=== PATIENT | male | born 1950 | race Hispanic/Latino ===

== ENCOUNTER 2018-11-16 11:46 | Observation (INO) | payer MEDICARE, MEDICAID ==
[2018-11-16] MEDS ORDERED: Albuterol-Ipratrop 3 mg / 0.5 (3 ml) UD IH STA (12:19)
--- NOTE | 2018-11-16 12:21 | ED PDOC ---
Arrival/HPI - General Chief Complaint: Chest Pain Time Seen by Provider: 11/16/18 11:56 Historian: Patient - History of Present Illness Narrative History of Present Illness (Text): 68 yr old male w/ hx of HLD p/w chest pain. Pt notes chest pain started this morning at 0800, left sided at first, then radiating to his right side, stabbing, first time occurence. He notes non productive cough as well. No abdominal pain or constipation. No fever, chills or night sweats. No dark or bloody stool. He notes nausea and one episode of vomiting. No trauma or fall. He also notes LLE pain, with some mild swelling. No other complaints. Past Medical History - Cardiac Hx Cardiac Disorders: Yes - Psychiatric Hx Substance Use: No Family/Social History Family/Social History: Unknown Family HX Smoking Status: Never Smoked Hx Alcohol Use: No Hx Substance Use: No Allergies/Home Meds Allergies/Adverse Reactions: Allergies No Known Allergies Allergy (Verified 11/16/18 11:59) Home Medications: Home Meds Medication Instructions Recorded Confirmed Unobtainable 11/16/18 11/16/18 Review of Systems - Review of Systems Constitutional: Normal. absent: Fatigue, Weight Change, Fevers, Night Sweats Eyes: Normal. absent: Vision Changes, Photophobia, Eye Pain ENT: Normal. absent: Hearing Changes, Tinnitus, TMJ Pain, Sore Throat Respiratory: SOB, Cough. absent: Sputum Cardiovascular: Chest Pain, Palpitations. absent: Edema, PRIEST, Orthopnea, Syncope Gastrointestinal: Nausea, Vomiting. absent: Abdominal Pain, Stool Changes, Constipation, Diarrhea, Appetite Changes, Hematochezia, Hematemesis Genitourinary Male: Normal. absent: Dysuria, Frequency, Hematuria Musculoskeletal: Normal. absent: Arthralgias, Back Pain, Neck Pain Skin: Normal. absent: Rash, Pruritis, Skin Lesions Neurological: Normal. absent: Headache, Dizziness, Focal Weakness Endocrine: Normal. absent: Diaphoresis, Polyuria Physical Exam Vital Signs Reviewed: Yes Vital Signs Temp Pulse Resp BP Pulse Ox 11/16/18 11:56 98.4 F 89 18 135/78 100 Temperature: Afebrile Blood Pressure: Normal Pulse: Regular Respiratory Rate: Normal Appearance: Positive for: Well-Appearing Pain Distress: Mild Mental Status: Positive for: Alert and Oriented X 3. No: Confused, Agitated - Systems Exam Head: Present: Atraumatic, Normocephalic Pupils: Present: PERRL Extroacular Muscles: Present: EOMI Conjunctiva: Present: Normal Ears: Present: Normal Mouth: Present: Moist Mucous Membranes Pharnyx: Present: Normal. No: ERYTHEMA, EXUDATE, TONSILS ENLARGED Nose (External): Present: Atraumatic. No: Abrasion Nose (Internal): Present: Normal Inspection Neck: Present: Normal Range of Motion. No: Meningeal Signs, MIDLINE TENDERNESS Respiratory/Chest: Present: Clear to Auscultation, Good Air Exchange. No: Respiratory Distress Cardiovascular: Present: Regular Rate and Rhythm, Normal S1, S2, Peripheal Pulses Present. No: Irregular Rhythm, Tachycardic, Bradycardic Abdomen: Present: Normal Bowel Sounds. No: Tenderness, Distention, Peritoneal Signs Back: Present: Normal Inspection. No: CVA Tenderness, Midline Tenderness Upper Extremity: Present: Normal Inspection, Normal ROM, NORMAL PULSES, Neurovascularly Intact. No: Cyanosis, Edema, Tenderness, Swelling, Erythema Lower Extremity: Present: Normal Inspection, NORMAL PULSES, Normal ROM, Other (negative thompsons). No: Edema, CALF TENDERNESS, Isabella's Sign, Tenderness, Swelling Neurological: Present: GCS=15, CN II-XII Intact, Speech Normal Skin: Present: Warm, Dry. No: Rashes Psychiatric: Present: Alert, Oriented x 3, Normal Insight Medical Decision Making ED Course and Treatment: 68 yr old male w/ hx of HLD p/w chest pain, shortness of breath, n/v. Moderate heart score given RF, AGE and story. will likely require reqeat trops. Also noted LLE swelling, but none visualized or noted on exam. Added venous duplex LLE. EK, NSR. No stemi Heat score Age: 2 RF: 1 Story: 1 EK trop: pending 11/16/18 14:12 trop pending xray unremarkable labs otherwise largely unremarkable pending US pt in [facility] 11/16/18 14:45 Troponin, bnp unremarkable ASA ordered Paged Hospitalist for admission for serial trops 11/16/18 14:49 appreciate consult w/ Dr. Angel: to obs to her service pt in [facility], agreeable to admission pain - RAD Interpretation Radiology Orders: 11/16/18 12:19 CHEST TWO VIEWS (PA/LAT) [RAD] Stat DUPLEX LOWER EXT ART LT LMTD [US] Stat - Medication Orders Current Medication Orders: Albuterol/Ipratropium (Duoneb 3 Mg/0.5 Mg (3 Ml) Ud) 3 ml IH STAT STA Stop: 11/16/18 12:20 Disposition/Present on Arrival - Present on Arrival Any Indicators Present on Arrival: No History of DVT/PE: No History of Uncontrolled Diabetes: No Urinary Catheter: No History of Decub. Ulcer: No History Surgical Site Infection Following: None - Disposition Have Diagnosis and Disposition been Completed?: Yes Diagnosis: Chest pain Disposition Time: 14:49 Patient Problems: Current Active Problems Problem Status Onset Chest pain Acute Condition: STABLE Discharge Instructions (ExitCare): Chest Pain (ED) Referrals: Marija Ovalle MD [Primary Care Provider] - Follow up with primary Forms: [email or web address] (Kiswahili)
[2018-11-16 12:31] LABS: BASO # 0.02 K/mm3 (0.0-2.0); BASO % 0.3 % (0.0-3.0); EOS # 0.1 (0.0-0.7); EOS % 1.7 % (1.5-5.0); HEMOGLOBIN 14.3 g/dL (14.0-18.0); LYMPH % 39.6 % (22.0-35.0); MEAN CELL VOLUME 94.1 fl (80.0-105.0); MEAN CORPUSCULAR HEMOGLOBIN 32.3 pg (25.0-35.0); MEAN CORPUSCULAR HGB CONC 34.3 g/dl (31.0-37.0); MEAN PLATELET VOLUME 10.5 fl (7.0-11.0); MONO # 0.6 (0.1-0.6); MONO % 8.1 % (1.0-6.0); RBC 4.43 10^6/uL (3.5-6.1); RED CELL DISTRIBUTION WIDTH 12.7 % (11.5-14.5); WHITE BLOOD COUNT 7.5 10^3/uL (4.5-11.0)
[2018-11-16 13:38] LABS: ALB/GLOB RATIO 1.2 (1.1-1.8); ALBUMIN 4.3 g/dL (3.0-4.8); BLOOD UREA NITROGEN 18 mg/dL (7-21); CALCIUM 9.6 mg/dL (8.4-10.5); GFR NON-AFRICAN AMERICAN > 60
[2018-11-16 13:44] LABS: ALT/SGPT 24 U/L (7-56); AST/SGOT 37 U/L (17-59)
--- NOTE | 2018-11-16 14:12 | RAD ---
Date of service: 11/16/2018 HISTORY: cp COMPARISON: No prior. TECHNIQUE: Chest PA and lateral views FINDINGS: LUNGS: No active pulmonary disease. PLEURA: No significant pleural effusion identified. No pneumothorax apparent. CARDIOVASCULAR: No aortic atherosclerotic calcification present. Normal cardiac size. No pulmonary vascular congestion. OSSEOUS STRUCTURES: No significant abnormalities. VISUALIZED UPPER ABDOMEN: Normal. OTHER FINDINGS: None. IMPRESSION: No active disease.
[2018-11-16 14:30] LABS: B-TYPE NATRIURETIC PEPTIDE 58.3 pg/mL (0-450); TROPONIN I 0.01 ng/mL
--- NOTE | 2018-11-16 15:51 | CP.PCM.HP ---
<Ana Zeng - Last Filed: 11/16/18 16:01> History of Present Illness - History of Present Illness History of Present Illness: Ana Zneg, PGY1 Hospital H&P CC: Chest pain This is a 68 year old male with PMH of HLD presenting to the ED for chest pain that began this morning at 7am while driving. Patient states chest pain started suddenly, characterized as stabbing, located along the left side of the chest, constant, rated 8/10, associated with nausea, one episode of NBNB vomitting, dizziness, right hand numbness and left leg numbness, and denies any alleviating factors and endorses palpation makes the pain worse. Pain spontaneously resolved and patient denies any history of similar symptoms. He sees Dr. Ovalle regularly and denies any history of cardiac workup including stress test and cardiac cath. He denies headaches, fevers, chills, abdominal pain, diarrhea, constipation, diarrhea, urinary complaints, swelling, recent travel, recent sickness, sick contacts at home, heavy lifting, trauma and recent diet/lifestyle change. 12 point ROS noted here, otherwise unremarkable. PMD: Dr. Ovalle [facility]acy[facility] [address] [facility] SH: denies smoking, drinking and drugs Sx: glaucoma surgery B/L two years ago Meds: unknown cholesterol medication and weekly vitamin D All: NKDA FH: denies Present on Admission - Present on Admission Any Indicators Present on Admission: No Past Patient History - Past Social History Smoking Status: Never Smoked - CARDIAC Hx Cardiac Disorders: Yes - PSYCHIATRIC Hx Substance Use: No - SURGICAL HISTORY Hx Surgeries: No Meds Home Medications: Home Medication List Medication Instructions Recorded Confirmed Type Pantoprazole [Protonix] 40 mg PO DAILY #30 ect 11/17/18 Rx Allergies/Adverse Reactions: Allergies Allergy/AdvReac Type Severity Reaction Status Date / Time No Known Allergies Allergy Verified 11/16/18 17:12 Physical Exam - Constitutional Appears: No Acute Distress - Head Exam Head Exam: ATRAUMATIC, NORMAL INSPECTION - Eye Exam Eye Exam: EOMI Pupil Exam: PERRL - ENT Exam ENT Exam: Mucous Membranes Moist - Neck Exam Neck exam: Positive for: Normal Inspection - Respiratory Exam Respiratory Exam: Clear to Auscultation Bilateral, NORMAL BREATHING PATTERN. absent: Accessory Muscle Use, Wheezes, Respiratory Distress - Cardiovascular Exam Cardiovascular Exam: REGULAR RHYTHM, +S1, +S2. absent: Tachycardia Additional comments: left sided chest wall reproducible tenderness with palpation - GI/Abdominal Exam GI & Abdominal Exam: Normal Bowel Sounds, Soft. absent: Firm, Guarding, T enderness - Extremities Exam Extremities exam: Positive for: normal inspection, pedal pulses present. Negative for: calf tenderness, pedal edema, tenderness - Back Exam Back exam: NORMAL INSPECTION Additional comments: Cervical and thoracic spinal tenderness appreciated. No erythema/skin changes noted - Neurological Exam Neurological exam: Alert, CN II-XII Intact, Oriented x3 - Skin Skin Exam: Normal Color, Warm Results - Vital Signs Recent Vital Signs: Last Vital Signs Temp 98.4 F 11/16/18 11:56 Pulse 59 L 11/16/18 15:41 Resp 18 11/16/18 15:41 BP 130/80 11/16/18 15:41 Pulse Ox 96 11/16/18 15:41 - Labs Result Diagrams: 11/16/18 12:00 11/16/18 12:00 Labs: Laboratory Results - last 24 hr 11/16/18 11/16/18 12:00 12:00 WBC 7.5 RBC 4.43 Hgb 14.3 Hct 41.7 L MCV 94.1 MCH 32.3 MCHC 34.3 RDW 12.7 Plt Count 203 MPV 10.5 Neut % (Auto) 50.3 Lymph % (Auto) 39.6 H [place] % (Auto) 8.1 H Eos % (Auto) 1.7 Baso % (Auto) 0.3 Lymph # (Auto) 3.0 [place] # (Auto) 0.6 Eos # (Auto) 0.1 Baso # (Auto) 0.02 Absolute Neuts (auto) 3.77 Sodium 138 Potassium 3.8 Chloride 102 Carbon Dioxide 28 Anion Gap 12 BUN 18 Creatinine 0.8 Est GFR ( Amer) > 60 Est GFR (Non-Af Amer) > 60 Random Glucose 97 Calcium 9.6 Total Bilirubin 0.4 AST 37 ALT 24 Alkaline Phosphatase 69 Troponin I 0.01 NT-Pro-B Natriuret Pep 58.3 Total Protein 8.0 Albumin 4.3 Globulin 3.7 Albumin/Globulin Ratio 1.2 Assessment & Plan - Assessment and Plan (Free Text) Assessment: This is a 68 year old male with PMH of HLD presenting to the ED for chest pain that began this morning at 7am while driving. Plan: Chest pain -initial troponin WNL, initial EKG NSR at 81bpm with no ST changes -serial troponins pending, EKG AM -TSH pending -A1c pending -echo pending -cardiology on consult Dizziness -left leg/right arm dizziness -CT head pending -aspirin Hx of HLD -lipid panel pending PPX -lovenox 40mg sc -HHD, NPO after midnight Patient seen and case discussed with attending, Dr. Angel <Chilo Angel - Last Filed: 11/17/18 15:36> Results - Vital Signs Recent Vital Signs: Last Vital Signs Temp 97.8 F 11/17/18 06:00 Pulse 55 L 11/17/18 10:00 Resp 20 11/17/18 06:00 BP 110/68 11/17/18 06:00 Pulse Ox 98 11/17/18 06:00 - Labs Result Diagrams: 11/17/18 06:05 11/17/18 06:05 Labs: Laboratory Results - last 24 hr 11/16/18 11/17/18 11/17/18 18:30 00:25 06:05 WBC 7.8 RBC 4.62 Hgb 14.7 Hct 43.6 MCV 94.4 MCH 31.8 MCHC 33.7 RDW 12.8 Plt Count 194 MPV 10.6 Neut % (Auto) 64.1 Lymph % (Auto) 23.1 [place] % (Auto) 10.6 H Eos % (Auto) 1.9 Baso % (Auto) 0.3 Lymph # (Auto) 1.8 [place] # (Auto) 0.8 H Eos # (Auto) 0.2 Baso # (Auto) 0.02 Absolute Neuts (auto) 5.02 Sodium Potassium Chloride Carbon Dioxide Anion Gap BUN Creatinine Est GFR ( Amer) Est GFR (Non-Af Amer) Random Glucose Hemoglobin A1c Calcium Phosphorus Magnesium Total Bilirubin AST ALT Alkaline Phosphatase Troponin I < 0.01 < 0.01 Total Protein Albumin Globulin Albumin/Globulin Ratio Triglycerides Cholesterol LDL Cholesterol Direct HDL Cholesterol TSH 3rd Generation 11/17/18 11/17/18 11/17/18 06:05 06:05 08:15 WBC RBC Hgb Hct MCV MCH MCHC RDW Plt Count MPV Neut % (Auto) Lymph % (Auto) [place] % (Auto) Eos % (Auto) Baso % (Auto) Lymph # (Auto) [place] # (Auto) Eos # (Auto) Baso # (Auto) Absolute Neuts (auto) Sodium 138 Potassium 4.6 Chloride 101 Carbon Dioxide 30 Anion Gap 11 BUN 18 Creatinine 1.0 Est GFR ( Amer) > 60 Est GFR (Non-Af Amer) > 60 Random Glucose 95 Hemoglobin A1c 6.0 Calcium 9.1 Phosphorus 3.4 Magnesium 2.0 Total Bilirubin 0.6 AST 30 ALT 21 Alkaline Phosphatase 68 Troponin I Total Protein 7.6 Albumin 3.8 Globulin 3.7 Albumin/Globulin Ratio 1.0 L Triglycerides 109 Cholesterol 223 H LDL Cholesterol Direct 107 HDL Cholesterol 58 TSH 3rd Generation 0.37 L Attending/Attestation - Attestation I have personally seen and examined this patient.: Yes I have fully participated in the care of the patient.: Yes I have reviewed all pertinent clinical information: Yes Notes (Text): 11/17/18 15:19 Attending note; Patient seen and examined with resident in ER. Patient is complaining of midsternal chest pain. Patient has chest pain on and off. Denies any fevers, chills. Denies any cough or sputum production. Patient is a 68 year old male with PMH of HLD presenting to the ED for chest pain that began this morning 1. Chest pain; EKG showed normal sinus rhythm left atrial enlargement. troponin x1 is negative. Troponin x3 ordered. Cardiology evaluation requested. Echocardiogram ordered. 2. HyperCholesterolemia; dietary education given. Upon discharge the patient will follow up with PMD .
--- NOTE | 2018-11-16 16:59 | CT ---
Date of service: 11/16/2018 PROCEDURE: CT HEAD WITHOUT CONTRAST. HISTORY: dizziness COMPARISON: None available. TECHNIQUE: Axial computed tomography images were obtained through the head/brain without intravenous contrast. Radiation dose: Total exam DLP = 811.97 mGy-cm. This CT exam was performed using one or more of the following dose reduction techniques: Automated exposure control, adjustment of the mA and/or kV according to patient size, and/or use of iterative reconstruction technique. FINDINGS: HEMORRHAGE: No intracranial hemorrhage. BRAIN: No mass effect or edema. No atrophy or chronic microvascular ischemic changes. VENTRICLES: Unremarkable. No hydrocephalus. CALVARIUM: Unremarkable. PARANASAL SINUSES: Unremarkable as visualized. No significant inflammatory changes. MASTOID AIR CELLS: Unremarkable as visualized. No inflammatory changes. OTHER FINDINGS: None. IMPRESSION: No intracranial mass, hemorrhage or evidence of acute infarct. Unremarkable examination
--- NOTE | 2018-11-16 17:41 | CARD ---
APPROVED REPORT Date of service: 11/16/2018 EKG Measurement Heart [id number] <Conclusion> Normal sinus rhythm Possible Left atrial enlargement Borderline ECG
--- NOTE | 2018-11-16 18:07 | US ---
PROCEDURE: Left lower extremity venous US HISTORY: Leg pain and swelling. Evaluate for DVT. PHYSICIAN(S): Markell Hatfield MD. TECHNIQUE: Duplex sonography and color-flow Doppler with graded compression were used to evaluate the deep venous system of the left lower extremity. FINDINGS: The visualized deep venous system of the left lower extremity is sonographically normal and compressible. Normal wave forms and augmentation are seen. There is no sonographic evidence for deep venous thrombosis in the visualized segments of the left lower extremity. IMPRESSION: 1. No sonographic evidence for deep venous thrombosis in the visualized segments of the left lower extremity.
[2018-11-16 18:58] VITALS: BMI 22.8
[2018-11-16] MEDS ORDERED: Influenza Vaccine 60 mcg/0.5 mL SYR (4YR UP) IM ONE (18:58)
[2018-11-16] MEDS ORDERED: Pneumococcal 23-Valent Vaccine IM ONE (18:58)
[2018-11-17 01:23] VITALS: RESP 20
[2018-11-17 06:31] VITALS: BP 110/68; TEMP 97.8; O2SAT 98
[2018-11-17 06:41] LABS: BASO # 0.02 K/mm3 (0.0-2.0); BASO % 0.3 % (0.0-3.0); EOS # 0.2 (0.0-0.7); EOS % 1.9 % (1.5-5.0); HEMOGLOBIN 14.7 g/dL (14.0-18.0); LYMPH # 1.8 (1.2-3.4); LYMPH % 23.1 % (22.0-35.0); MEAN CELL VOLUME 94.4 fl (80.0-105.0); MEAN CORPUSCULAR HEMOGLOBIN 31.8 pg (25.0-35.0); MEAN CORPUSCULAR HGB CONC 33.7 g/dl (31.0-37.0); MEAN PLATELET VOLUME 10.6 fl (7.0-11.0); MONO # 0.8 (0.1-0.6); MONO % 10.6 % (1.0-6.0); RBC 4.62 10^6/uL (3.5-6.1); RED CELL DISTRIBUTION WIDTH 12.8 % (11.5-14.5); WHITE BLOOD COUNT 7.8 10^3/uL (4.5-11.0)
[2018-11-17 07:01] LABS: LDL CHOLESTEROL 107 mg/dL (0-129)
[2018-11-17 07:24] LABS: ALBUMIN 3.8 g/dL (3.0-4.8); ALT/SGPT 21 U/L (7-56); AST/SGOT 30 U/L (17-59); BLOOD UREA NITROGEN 18 mg/dL (7-21); CALCIUM 9.1 mg/dL (8.4-10.5); GFR NON-AFRICAN AMERICAN > 60; HDL CHOLESTEROL 58 mg/dL (29-60)
--- NOTE | 2018-11-17 08:00 | CP.PCM.CON ---
History of Present Illness - History of Present Illness History of Present Illness: Awake, alert, no distress, denies chest pain Reason for consultation:Cardiac evaluation of chest pain Brief history of present illness:A 68 year old male who came in to the ER due to epigastric pain radiating to left side of chest associated with nausea and vomiting. He claimed to have heart burn. History of hyperlipidemia, hypert ension, bilateral eye surgeries.He follows up with Dr. Ovalle. He denies smoking and drinking. He runs everyday.Denies any other medical problems. Seen and examined by me and Dr. 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) - RENAL Hx Chronic Kidney Disease: No - ENDOCRINE/METABOLIC Hx Endocrine Disorders: No - HEMATOLOGICAL/ONCOLOGICAL Hx Blood Disorders: No - INTEGUMENTARY Hx Dermatological Problems: Yes (ALBINO) - MUSCULOSKELETAL/RHEUMATOLOGICAL Hx Musculoskeletal Disorders: No Hx Falls: No - GASTROINTESTINAL Hx Gastrointestinal Disorders: No - GENITOURINARY/GYNECOLOGICAL Hx Genitourinary Disorders: No - PSYCHIATRIC Hx Psychophysiologic Disorder: No Hx Substance Use: No - SURGICAL HISTORY Hx Surgeries: Yes (BILATERAL EYE SURGERY) Meds Allergies/Adverse Reactions: Allergies Allergy/AdvReac Type Severity Reaction Status Date / Time No Known Allergies Allergy Verified 11/16/18 17:12 - Medications Medications: Current Medications Aspirin (Ecotrin) 81 mg PO 0800 [facility] Enoxaparin Sodium (Lovenox) 40 mg SC DAILY [facility]; Protocol Physical Exam - Constitutional Appears: Non-toxic, No Acute Distress - Head Exam Head Exam: NORMAL INSPECTION, NORMOCEPHALIC - Eye Exam Eye Exam: Normal appearance Pupil Exam: NORMAL ACCOMODATION - ENT Exam ENT Exam: Mucous Membranes Moist, Normal Exam - Respiratory Exam Respiratory Exam: Decreased Breath Sounds, Clear to Auscultation Bilateral, NORMAL BREATHING PATTERN - Cardiovascular Exam Cardiovascular Exam: Bradycardia, +S1, +S2 - GI/Abdominal Exam GI & Abdominal Exam: Normal Bowel Sounds, Soft Additional comments: burping - Extremities Exam Extremities exam: Positive for: full ROM - Neurological Exam Neurological exam: Alert, Oriented x3 - Psychiatric Exam Psychiatric exam: Normal Affect, Normal Mood - Skin Skin Exam: Dry, Normal Color, Warm Results - Vital Signs Recent Vital Signs: Last Vital Signs Temp 97.8 F 11/17/18 06:00 Pulse 82 11/17/18 06:00 Resp 20 11/17/18 06:00 BP 110/68 11/17/18 06:00 Pulse Ox 98 11/17/18 06:00 - Labs Result Diagrams: 11/17/18 06:05 11/17/18 06:05 Labs: Laboratory Results - last 24 hr 11/16/18 11/16/18 11/16/18 12:00 12:00 18:30 WBC 7.5 RBC 4.43 Hgb 14.3 Hct 41.7 L MCV 94.1 MCH 32.3 MCHC 34.3 RDW 12.7 Plt Count 203 MPV 10.5 Neut % (Auto) 50.3 Lymph % (Auto) 39.6 H [place] % (Auto) 8.1 H Eos % (Auto) 1.7 Baso % (Auto) 0.3 Lymph # (Auto) 3.0 [place] # (Auto) 0.6 Eos # (Auto) 0.1 Baso # (Auto) 0.02 Absolute Neuts (auto) 3.77 Sodium 138 Potassium 3.8 Chloride 102 Carbon Dioxide 28 Anion Gap 12 BUN 18 Creatinine 0.8 Est GFR ( Amer) > 60 Est GFR (Non-Af Amer) > 60 Random Glucose 97 Calcium 9.6 Phosphorus Magnesium Total Bilirubin 0.4 AST 37 ALT 24 Alkaline Phosphatase 69 Troponin I 0.01 < 0.01 NT-Pro-B Natriuret Pep 58.3 Total Protein 8.0 Albumin 4.3 Globulin 3.7 Albumin/Globulin Ratio 1.2 Triglycerides Cholesterol LDL Cholesterol Direct HDL Cholesterol 11/17/18 11/17/18 11/17/18 00:25 06:05 06:05 WBC 7.8 RBC 4.62 Hgb 14.7 Hct 43.6 MCV 94.4 MCH 31.8 MCHC 33.7 RDW 12.8 Plt Count 194 MPV 10.6 Neut % (Auto) 64.1 Lymph % (Auto) 23.1 [place] % (Auto) 10.6 H Eos % (Auto) 1.9 Baso % (Auto) 0.3 Lymph # (Auto) 1.8 [place] # (Auto) 0.8 H Eos # (Auto) 0.2 Baso # (Auto) 0.02 Absolute Neuts (auto) 5.02 Sodium 138 Potassium 4.6 Chloride 101 Carbon Dioxide 30 Anion Gap 11 BUN 18 Creatinine 1.0 Est GFR ( Amer) > 60 Est GFR (Non-Af Amer) > 60 Random Glucose 95 Calcium 9.1 Phosphorus 3.4 Magnesium 2.0 Total Bilirubin 0.6 AST 30 ALT 21 Alkaline Phosphatase 68 Troponin I < 0.01 NT-Pro-B Natriuret Pep Total Protein 7.6 Albumin 3.8 Globulin 3.7 Albumin/Globulin Ratio 1.0 L Triglycerides 109 Cholesterol 223 H LDL Cholesterol Direct 107 HDL Cholesterol 58 Assessment & Plan - Assessment and Plan (Free Text) Assessment: A 68 year old male who came in to the ER due to epigastric pain radiating to left side of chest associated with nausea and vomiting. He claimed to have heart burn. History of hyperlipidemia, hypertension, bilateral eye surgeries. He follows up with Dr. Ovalle. He denies smoking and drinking. He runs everyday. Denies any other medical problems.No previous cardiac work up at [facility]. EKG showed NSR, possible atrial enlargement. Chest X ray normal results. CT of head unremarkable. Negative for DVT per ultrasound. Tropronin normal x 3. Denies chest pain. Complaints of heartburn/epigastric pain. Ruled out myocardial ischemia. GI symptoms consider GI work up. Will order echo to evaluate LV function. Out patient stress test for risk stratification. Plan: Denies chest pain Heart rate controlled Blood pressure controlled Echo to evaluate LV function Continue current treatment Continue current medications TSH,HgbA1c Will follow up Further recommendations during hospital course Plan and treatment discussed with Dr. Pierce Thank you Dr. Angel for the opportunity of taking care of Mr. Tyler Can - Date & Time Date: 11/17/18 Time: 06:20
[2018-11-17] MEDS ORDERED: Enoxaparin 40 mg Syringe SC SCH (10:00)
[2018-11-17 11:34] VITALS: PULSE 55
--- NOTE | 2018-11-17 14:51 | CP.PCM.DIS ---
<Ana Zeng - Last Filed: 11/17/18 14:44> Provider - Provider Date of Admission: 11/16/18 14:48 Attending physician: Chilo Angel MD Primary care physician: Marija Ovalle MD Consults: 11/16/18 16:01 Cardiology Consult Stat Comment: Consulting Provider: Gianni Pierce Consulting Physician: Gianni Pierce Reason for Consult: chest pain 11/16/18 18:58 Inpatient [employer] Core Measures Referral Routine Comment: Physician Instructions: Reason For Exam: EVALUATION Transition In Care/Readmission Reduction Routine Comment: Physician Instructions: Reason For Exam: EVALUATION Time Spent in preparation of Discharge (in minutes): 35 Hospital Course - Lab Results Lab Results: Most Recent Lab Values WBC 7.8 10^3/uL (4.5-11.0) 11/17/18 06:05 RBC 4.62 10^6/uL (3.5-6.1) 11/17/18 06:05 Hgb 14.7 g/dL (14.0-18.0) 11/17/18 06:05 Hct 43.6 % (42.0-52.0) 11/17/18 06:05 MCV 94.4 fl (80.0-105.0) 11/17/18 06:05 MCH 31.8 pg (25.0-35.0) 11/17/18 06:05 MCHC 33.7 g/dl (31.0-37.0) 11/17/18 06:05 RDW 12.8 % (11.5-14.5) 11/17/18 06:05 Plt Count 194 10^3/uL (120.0-450.0) 11/17/18 06:05 MPV 10.6 fl (7.0-11.0) 11/17/18 06:05 Neut % (Auto) 64.1 % (50.0-68.0) 11/17/18 06:05 Lymph % (Auto) 23.1 % (22.0-35.0) 11/17/18 06:05 Freestone % (Auto) 10.6 % (1.0-6.0) H 11/17/18 06:05 Eos % (Auto) 1.9 % (1.5-5.0) 11/17/18 06:05 Baso % (Auto) 0.3 % (0.0-3.0) 11/17/18 06:05 Lymph # (Auto) 1.8 (1.2-3.4) 11/17/18 06:05 Freestone # (Auto) 0.8 (0.1-0.6) H 11/17/18 06:05 Eos # (Auto) 0.2 (0.0-0.7) 11/17/18 06:05 Baso # (Auto) 0.02 K/mm3 (0.0-2.0) 11/17/18 06:05 Absolute Neuts (auto) 5.02 (1.4-6.5) 11/17/18 06:05 Sodium 138 mmol/L (132-148) 11/17/18 06:05 Potassium 4.6 mmol/L (3.6-5.0) 11/17/18 06:05 Chloride 101 mmol/L (98-107) 11/17/18 06:05 Carbon Dioxide 30 mmol/L (21-33) 11/17/18 06:05 Anion Gap 11 (10-20) 11/17/18 06:05 BUN 18 mg/dL (7-21) 11/17/18 06:05 Creatinine 1.0 mg/dl (0.8-1.5) 11/17/18 06:05 Est GFR ( Amer) > 60 11/17/18 06:05 Est GFR (Non-Af Amer) > 60 11/17/18 06:05 Random Glucose 95 mg/dL (70-110) 11/17/18 06:05 Hemoglobin A1c 6.0 % (4.2-6.5) 11/17/18 06:05 Calcium 9.1 mg/dL (8.4-10.5) 11/17/18 06:05 Phosphorus 3.4 mg/dL (2.5-4.5) 11/17/18 06:05 Magnesium 2.0 mg/dL (1.7-2.2) 11/17/18 06:05 Total Bilirubin 0.6 mg/dL (0.2-1.3) 11/17/18 06:05 AST 30 U/L (17-59) 11/17/18 06:05 ALT 21 U/L (7-56) 11/17/18 06:05 Alkaline Phosphatase 68 U/L (38-126) 11/17/18 06:05 Troponin I < 0.01 ng/mL 11/17/18 00:25 NT-Pro-B Natriuret Pep 58.3 pg/mL (0-450) 11/16/18 12:00 Total Protein 7.6 g/dL (5.8-8.3) 11/17/18 06:05 Albumin 3.8 g/dL (3.0-4.8) 11/17/18 06:05 Globulin 3.7 gm/dL 11/17/18 06:05 Albumin/Globulin Ratio 1.0 (1.1-1.8) L 11/17/18 06:05 Triglycerides 109 mg/dL (35-160) 11/17/18 06:05 Cholesterol 223 mg/dL (130-200) H 11/17/18 06:05 LDL Cholesterol Direct 107 mg/dL (0-129) 11/17/18 06:05 HDL Cholesterol 58 mg/dL (29-60) 11/17/18 06:05 TSH 3rd Generation 0.37 mIU/mL (0.46-4.68) L 11/17/18 08:15 Physical Exam - Constitutional Appears: No Acute Distress - Head Exam Head Exam: ATRAUMATIC, NORMAL INSPECTION - Eye Exam Eye Exam: EOMI Pupil Exam: PERRL - ENT Exam ENT Exam: Mucous Membranes Moist - Neck Exam Neck exam: Positive for: Normal Inspection - Respiratory Exam Respiratory Exam: Clear to Auscultation Bilateral, NORMAL BREATHING PATTERN. absent: Accessory Muscle Use, Wheezes, Respiratory Distress - Cardiovascular Exam Cardiovascular Exam: REGULAR RHYTHM, +S1, +S2. absent: Tachycardia Additional comments: left sided chest wall reproducible tenderness with palpation - GI/Abdominal Exam GI & Abdominal Exam: Normal Bowel Sounds, Soft. absent: Firm, Guarding, Tenderness - Extremities Exam Extremities exam: Positive for: normal inspection, pedal pulses present. Negative for: calf tenderness, pedal edema, tenderness - Back Exam Back exam: NORMAL INSPECTION Additional comments: Cervical and thoracic spinal tenderness appreciated. No erythema/skin changes noted - Neurological Exam Neurological exam: Alert, CN II-XII Intact, Oriented x3 - Skin Skin Exam: Normal Color, Warm - Hospital Course Hospital Course: Upon admission, 68 year old male with PMH of HLD presenting to the ED for chest pain that began this morning at 7am while driving. Patient states chest pain started suddenly, characterized as stabbing, located along the left side of the chest, constant, rated 8/10, associated with nausea, one episode of NBNB vomitting, dizziness, right hand numbness and left leg numbness, and denies any alleviating factors and endorses palpation makes the pain worse. Pain spontaneously resolved and patient denies any history of similar symptoms. He sees Dr. Ovalle regularly and denies any history of cardiac workup including stress test and cardiac cath. During hospital course, troponins x3 were WNL and EKG showed NSR with no ST changes. CXR did not show active disease, left lower extremity did not show any clot and head CT was unremarkable. A1c was 6%, lipid panel showed cholesterol of 223 and TSH was 0.37 and denied any hyperthyroid symptoms. Patient was given 30 day supply of protonix for abdominal pain improved with belching and denies any chest pain overnight. Cardiology evaluated patient and recommended outpatient cardiac stress test the following week which patient agreed to. Patient's questions were all answered to satisfaction on day of discharge and he agreed with discharged today. Patient agreed to follow up with his PMD. Discharge Exam - Head Exam Head Exam: NORMAL INSPECTION, NORMOCEPHALIC Discharge Plan - Discharge Medications Prescriptions: Pantoprazole [Protonix] 40 mg PO DAILY #30 ect - Follow Up Plan Condition: STABLE Disposition: HOME/ ROUTINE Instructions: Chest Pain (DC) Additional Instructions: Please follow up with your primary care doctor, Dr. Ovalle within 5-7 days of discharge. Please resume your home cholesterol medication. As per our discussion, you do not need any refills at this time. Please follow up with your associate publisher, Dr. Pierce for your outpatient cardiac stress test. Please start taking protonix 40mg once daily. Please get refills from your primary care doctor. Please return to the ED for any new or worsening symptoms. Referrals: Marija Ovalle MD [Primary Care Provider] - Gianni Pierce MD [Staff Provider] - <Chilo Angel - Last Filed: 11/17/18 15:38> Provider - Provider Date of Admission: 11/16/18 14:48 Attending physician: Chilo Angel MD Primary care physician: Marija Ovalle MD Consults: 11/16/18 16:01 Cardiology Consult Stat Comment: Consulting Provider: Gianni Pierce Consulting Physician: Gianni Pierce Reason for Consult: chest pain 11/16/18 18:58 Inpatient [employer] Core Measures Referral Routine Comment: Physician Instructions: Reason For Exam: EVALUATION Transition In Care/Readmission Reduction Routine Comment: Physician Instructions: Reason For Exam: EVALUATION Hospital Course - Lab Results Lab Results: Most Recent Lab Values WBC 7.8 10^3/uL (4.5-11.0) 11/17/18 06:05 RBC 4.62 10^6/uL (3.5-6.1) 11/17/18 06:05 Hgb 14.7 g/dL (14.0-18.0) 11/17/18 06:05 Hct 43.6 % (42.0-52.0) 11/17/18 06:05 MCV 94.4 fl (80.0-105.0) 11/17/18 06:05 MCH 31.8 pg (25.0-35.0) 11/17/18 06:05 MCHC 33.7 g/dl (31.0-37.0) 11/17/18 06:05 RDW 12.8 % (11.5-14.5) 11/17/18 06:05 Plt Count 194 10^3/uL (120.0-450.0) 11/17/18 06:05 MPV 10.6 fl (7.0-11.0) 11/17/18 06:05 Neut % (Auto) 64.1 % (50.0-68.0) 11/17/18 06:05 Lymph % (Auto) 23.1 % (22.0-35.0) 11/17/18 06:05 Freestone % (Auto) 10.6 % (1.0-6.0) H 11/17/18 06:05 Eos % (Auto) 1.9 % (1.5-5.0) 11/17/18 06:05 Baso % (Auto) 0.3 % (0.0-3.0) 11/17/18 06:05 Lymph # (Auto) 1.8 (1.2-3.4) 11/17/18 06:05 Freestone # (Auto) 0.8 (0.1-0.6) H 11/17/18 06:05 Eos # (Auto) 0.2 (0.0-0.7) 11/17/18 06:05 Baso # (Auto) 0.02 K/mm3 (0.0-2.0) 11/17/18 06:05 Absolute Neuts (auto) 5.02 (1.4-6.5) 11/17/18 06:05 Sodium 138 mmol/L (132-148) 11/17/18 06:05 Potassium 4.6 mmol/L (3.6-5.0) 11/17/18 06:05 Chloride 101 mmol/L (98-107) 11/17/18 06:05 Carbon Dioxide 30 mmol/L (21-33) 11/17/18 06:05 Anion Gap 11 (10-20) 11/17/18 06:05 BUN 18 mg/dL (7-21) 11/17/18 06:05 Creatinine 1.0 mg/dl (0.8-1.5) 11/17/18 06:05 Est GFR ( Amer) > 60 11/17/18 06:05 Est GFR (Non-Af Amer) > 60 11/17/18 06:05 Random Glucose 95 mg/dL (70-110) 11/17/18 06:05 Hemoglobin A1c 6.0 % (4.2-6.5) 11/17/18 06:05 Calcium 9.1 mg/dL (8.4-10.5) 11/17/18 06:05 Phosphorus 3.4 mg/dL (2.5-4.5) 11/17/18 06:05 Magnesium 2.0 mg/dL (1.7-2.2) 11/17/18 06:05 Total Bilirubin 0.6 mg/dL (0.2-1.3) 11/17/18 06:05 AST 30 U/L (17-59) 11/17/18 06:05 ALT 21 U/L (7-56) 11/17/18 06:05 Alkaline Phosphatase 68 U/L (38-126) 11/17/18 06:05 Troponin I < 0.01 ng/mL 11/17/18 00:25 NT-Pro-B Natriuret Pep 58.3 pg/mL (0-450) 11/16/18 12:00 Total Protein 7.6 g/dL (5.8-8.3) 11/17/18 06:05 Albumin 3.8 g/dL (3.0-4.8) 11/17/18 06:05 Globulin 3.7 gm/dL 11/17/18 06:05 Albumin/Globulin Ratio 1.0 (1.1-1.8) L 11/17/18 06:05 Triglycerides 109 mg/dL (35-160) 11/17/18 06:05 Cholesterol 223 mg/dL (130-200) H 11/17/18 06:05 LDL Cholesterol Direct 107 mg/dL (0-129) 11/17/18 06:05 HDL Cholesterol 58 mg/dL (29-60) 11/17/18 06:05 TSH 3rd Generation 0.37 mIU/mL (0.46-4.68) L 11/17/18 08:15 Attending/Attestation - Attestation I have personally seen and examined this patient.: Yes I have fully participated in the care of the patient.: Yes I have reviewed all pertinent clinical information, including history, physical exam and plan: Yes Notes (Text): 11/17/18 15:36 Attending note; Patient seen and examined with resident. Planing of mild epigastric discomfort. Tenderness on palpation. Denies any fevers, chills. Denies any cough or sputum production. Patient is a 68 year old male with PMH of HLD presenting to the ED for chest pain that began this morning 1. Chest pain; EKG showed normal sinus rhythm left atrial enlargement. troponin x3 negative. Cardiology evaluation appreciated. Outpatient stress test arranged. 2. HyperCholesterolemia; dietary education given. Patient will be discharged home. Follow-up with cardiology Dr. Pierce as outpatient. Upon discharge the patient will follow up with PMD .
--- NOTE | 2018-11-17 17:19 | CARD ---
APPROVED REPORT Date of service: 11/17/2018 EXAM: Two-dimensional and M-mode echocardiogram with Doppler and color Doppler. INDICATION Chest Pain 2D DIMENSIONS Left Atrium (2D)3.2 (1.6-4.0cm)IVSd0.9 (0.7-1.1cm) LVDd3.8 (3.9-5.9cm)PWd1.0 (0.7-1.1cm) LVDs2.8 (2.5-4.0cm)FS (%) 27.6 % LVEF (%)54.4 (>50%) M-Mode DIMENSIONS Aortic Root2.90 (2.2-3.7cm)Aortic Cusp Exc.2.00 (1.5-2.0cm) Aortic Valve AoV Peak Ughfjvha779.0cm/[place] Peak GR.5mmHg Mitral Valve MV E Qkiyujxb74.6cm/sMV A Qbfeicou26.3cm/sE/A ratio1.3 TDI E/Lateral E'0.0E/Medial E'0.0 Tricuspid Valve TR Peak [id number]/sRAP [id number] Peak Gr.17mmHg [id number] LEFT VENTRICLE The left ventricle is normal size. There is normal left ventricular wall thickness. The left ventricular function is normal. The left ventricular ejection fraction is within the normal range. There is normal LV segmental wall motion. The left ventricular diastolic function is normal. RIGHT VENTRICLE The right ventricle is normal size. There is normal right ventricular wall thickness. The right ventricular systolic function is normal. ATRIA The left atrium size is normal. The right atrium size is normal. AORTIC VALVE The aortic valve is not well visualized. No aortic regurgitation is present. There is no aortic valvular stenosis. MITRAL VALVE The mitral valve is normal in structure. There is no mitral valve regurgitation noted. There is no mitral valve stenosis. TRICUSPID VALVE The tricuspid valve is normal in structure. There is no tricuspid valve regurgitation noted. PULMONIC VALVE The pulmonary valve is normal in structure. There is no pulmonic valvular regurgitation. GREAT VESSELS The aortic root is normal in size. The IVC is normal in size and collapses >50% with inspiration. PERICARDIAL EFFUSION There is a trace pericardial effusion. <Conclusion> There is normal left ventricular wall thickness. The left ventricular function is normal. The left ventricular ejection fraction is within the normal range. There is normal LV segmental wall motion. The left ventricular diastolic function is normal.
--- NOTE | 2018-11-17 17:44 | CARD ---
APPROVED REPORT Date of service: 11/17/2018 EKG Measurement Heart [id number] <Conclusion> Sinus bradycardia ST elevation, probably due to early repolarization Borderline ECG
== END 2018-11-17 11:18 | disposition home or self-care (01) ==
LOC: ED 11:46 → ERH 14:48 → 2RNO 17:09
PROVIDERS: ADMIT Internal Medicine; ATTEND Internal Medicine
DX: R07.89 Other chest pain (principal); I10 Essential (primary) hypertension; E78.5 Hyperlipidemia, unspecified; H40.9 Unspecified glaucoma; E78.00 Pure hypercholesterolemia, unspecified; Z71.3 Dietary counseling and surveillance
CPT/HCPCS: 36415; 70450; 71046; 80053; 80061; 83036; 83735; 83880; 84100; 84443; 84484; 85025; 93005; 93306; 93971; 96374; 99285; G0378; J2405

== ENCOUNTER → 2018-11-25 | Outpatient (CLI) | payer MEDICARE, MEDICAID | END | disposition home or self-care (01) | LOC: CARDIO 06:30 | DX: R07.9 Chest pain, unspecified (principal); E78.00 Pure hypercholesterolemia, unspecified ==